=== PATIENT | female | born 1955 ===

== ENCOUNTER 2016-06-02 08:14 | Emergency (ER) | payer BC ==
--- NOTE | 2016-06-02 08:36 | UC ---
Shortness of Breath HPI - HPI Summary HPI Summary: c/o SOB, and dizziness with sitting up at times. States symptoms worsened Tuesday. Called PCP on Tuesday, States they prescribed an inhaler, but pharmacy had to order. Was able to pick it up yesterday - breo. SOB with exertion has been going on for months, but worsened 05/29. Ran outr of breo on 05/28. She was at work 05/29 and co-workers told her she looked pale and didnt look good. Feels pre-syncopal when she stands. Doesnt check blood sugars, on metforimn. Unaware of last A1c. had labs done through [facility] w[facility] ago and was told renal fxn nml, but concern bc a lot of NSAID use for m/s issues. - History of Current Complaint Chief Complaint: UCRespiratory Stated Complaint: SOB Time Seen by Provider: 06/02/16 08:20 - Allergy/Home Medications Allergies/Adverse Reactions: Allergies Allergy/AdvReac Type Severity Reaction Status Date / Time No Known Allergies Allergy Verified 06/02/16 08:38 Home Medications: Home Medications Amlodipine Besylate-Olmesartan [Amlodipine/Olmesartan Med 10-40 mg] 1 tab PO DAILY 06/02/16 [History Confirmed 06/02/16] Fenofibrate(NF) [Tricor(NF)] 145 mg PO DAILY 06/02/16 [History Confirmed ] Fluticasone Furoate-Vilanterol [Breo Ellipta 200-25 Mcg/INH] 1 inh IN DAILY [History Confirmed 06/02/16] Hydrochlorothiazide TAB* [Hydrodiuril TAB*] 25 mg PO DAILY 06/02/16 [History Confirmed 06/02/16] Metformin HCl [Metformin HCl ER (Osmotic] 750 mg PO BID 06/02/16 [History Confirmed 06/02/16] Simvastatin TAB(NF) [Zocor(NF)] 40 mg PO 1700 06/02/16 [History Confirmed ] Tiotropium CAP.INH* [Spiriva CAP.INH*] 1 cap.inh INH BID 06/02/16 [History Confirmed 06/02/16] PMH/Surg Hx/FS Hx/Imm Hx Previously Healthy: Yes Endocrine History Of: Reports: Diabetes Cardiovascular History Of: Reports: Hypertension - Surgical History Surgical History: Yes Surgery Procedure, Year, and Place: bladder sling - Family History Known Family History: Positive: Hypertension Negative: Cardiac Disease, Diabetes - Social History Alcohol Use: None Substance Use Type: None Smoking Status (MU): Heavy Every Day Tobacco Smoker Type: Cigarettes Amount Used/How Often: 1 1/2 pack daily Review of Systems Constitutional: Fatigue Skin: Negative Eyes: Negative ENT: Negative Respiratory: Shortness Of Breath, Other - wheezing. Cardiovascular: Negative, Other - lightheaded upon standing. Gastrointestinal: Negative Genitourinary: Negative Motor: Negative Neurovascular: Negative Musculoskeletal: Negative Neurological: Weakness Psychological: Negative All Other Systems Reviewed And Are Negative: Yes Physical Exam Triage Information Reviewed: Yes Appearance: Well-Appearing, No Pain Distress, Well-Nourished - greyish in color. Vital Signs: Initial Vital Signs Temp 99.2 F 06/02/16 08:27 Pulse 88 06/02/16 08:27 Resp 22 06/02/16 08:27 BP 142/52 06/02/16 08:27 Pulse Ox 82 06/02/16 08:27 Vital Signs Reviewed: Yes Eye Exam: Normal ENT: Positive: Pharyngeal erythema - +PND, no exudate., TMs normal Dental: Positive: Other: - poor dentition, missing teeth. Neck exam: Normal Neck: Positive: Supple, Nontender, No Lymphadenopathy Respiratory: Positive: Lungs clear, No accessory muscle use, Decreased breath sounds - slight.. Negative: Crackles, Rhonchi, Stridor, Wheezing Cardiovascular Exam: Normal Cardiovascular: Positive: RRR, No Murmur, Pulses Normal, Brisk Capillary Refill Abdominal Exam: Normal Abdomen Description: Positive: Nontender, Soft Musculoskeletal Exam: Normal Neurological Exam: Normal Psychological Exam: Normal Skin Exam: Normal Shortness of Breath Dx - Course Course Of Treatment: SOB worsening over 5 days with O2 at 82% improved to 95% withj O2 3 L NC. No chest pain. EKG - NSR, nml axis, rsr', no AV/IV changes or ST/T changes, no previous to compare. Lung exam is not impressive at time of exam to account for hypoxia and sx and needs higher level of evaluation. She refuses ambulance and understands risks of having her brother drive her by private car. Her brother agrees to take her directly there and not make any stops. To remain NPO. O2 at 83% when O2 is removed upon d/c. again offered ambulance and she refuses. Understands her risks of complications and demise. - Differential Dx/Diagnosis Differential Diagnosis/HQI/PQRI: Bronchitis, Pneumonia, Pneumothorax, Pulmonary Embolism Provider Diagnoses: Shortness of breath, hypoxia, pre-syncope - Physician Notification/Consults Discussed Patient Care With: Jacqueline Mehta NP at [facility]. pt prefers [facility] which I agree with proximity in acute case. She will be traveling without O2. Jacqueline accepts pt. Time Discussed With Above Provider: 08:50 Discharge - Discharge Plan Condition: Guarded Disposition: TRANS HIGHER LVL OF CARE FAC
[2016-06-02 09:05] VITALS: BP 135/56
== END 2016-06-02 09:03 | disposition left against medical advice (07) ==
LOC: UCCORT 08:14
DX: R06.02 Shortness of breath (principal); R09.02 Hypoxemia; R55 Syncope and collapse; R07.89 Other chest pain; E11.9 Type 2 diabetes mellitus without complications; Z79.84 Long term (current) use of oral hypoglycemic drugs; I10 Essential (primary) hypertension; F17.210 Nicotine dependence, cigarettes, uncomplicated
CPT/HCPCS: 93005; 99213; G0463